=== PATIENT | female | born 2005 | race Caucasian/White ===

== ENCOUNTER 2024-06-02 11:59 | Emergency (ER) | payer BC ==
[~2024-06-02] VITALS: Ht 149.9 cm; Wt 43.1 kg
[2024-06-02] MEDS ORDERED: DICY10CA37 PO (12:37)
[2024-06-02 12:48] VITALS: BP 109/55; TEMP 97.9; O2SAT 99
== END 2024-06-02 12:49 | disposition home or self-care (01) ==
LOC: ER 12:12
DX: R10.30 Lower abdominal pain, unspecified (principal); R11.10 Vomiting, unspecified; F32.A Depression, unspecified